=== PATIENT | male | born 1940 | race Caucasian/White ===

== ENCOUNTER 2021-11-10 04:17 | Inpatient (IN) | payer MEDICARE, BC ==
[~2021-11-10] VITALS: Ht 182.9 cm; Wt 88.1 kg
[2021-11-10 06:19] LABS: Anti-Xa UFH, PHA Monitoring 0.27 IU/mL
[2021-11-10] MEDS ORDERED: ASPI81CH PO (06:49)
[2021-11-10] MEDS ORDERED: ATOR40TA PO (06:50)
[2021-11-10] MEDS ORDERED: Carvedilol12.5 MG PO (06:51)
[2021-11-10] MEDS ORDERED: CELE200 PO (06:51)
[2021-11-10] MEDS ORDERED: Celexa20 MG PO (06:52)
--- NOTE | 2021-11-10 06:52 | NUR ---
COUNTER MAKER SUMMARY PT IS ALERT AND COMMUNICATING APPROPRIATELY W STAFF. PT DENYING ANY CP OR PRESSURE THIS SHIFT SINCE ARRIVING TO THE UNIT. TELE SHOWING SR IN THE 70'S W BBB AND ST DEPRESSION. O2 SATS >90% ON RM AIR. PT AFEBRILE. PT DENYING ANY NAUSEA AT THIS TIME. PT NPO FOR POSSIBLE PROCEDURE. HEPARIN GTT RUNNING PER EMAR. WILL REPORT TO ONCOMING RN.
[2021-11-10] MEDS ORDERED: CLOP75 PO (06:53)
[2021-11-10] MEDS ORDERED: CLON2 PO (06:53)
[2021-11-10] MEDS ORDERED: CYCL10 PO (06:54)
[2021-11-10] MEDS ORDERED: DILT60ER PO (06:55)
[2021-11-10] MEDS ORDERED: HYDR1TAB94 PO (06:55)
[2021-11-10] MEDS ORDERED: LEVSOD150 PO (06:56)
[2021-11-10] MEDS ORDERED: Prednisone10 MG (06:57)
--- NOTE | 2021-11-10 07:00 | NUR ---
Bedside report from Ramu Araya RN. Aníbal denies any chest pain, dyspnea, nor diaphoresis or other discomfort. Said that he is expecting to have an angiogram today, as that is what he was told would probably happen. STates that he has had 2 CABG surgeries, and also stents in the past. 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 Heparin gtt verified infusing per orders.
[2021-11-10 07:01] LABS: BASOPHILS ABSOLUTE AUTO 0.02 K/mm3 (0.00-0.23); BASOPHILS PERCENT AUTO 0 % (0-2); EOSINOPHILS ABSOLUTE AUTO 0.07 K/mm3 (0.00-0.68); EOSINOPHILS PERCENT AUTO 1 % (0-6); Hematocrit 46.6 % (37.0-53.0); Hemoglobin 15.9 g/dL (13.5-17.5); IMMATURE GRAN ABSOLUTE AUTO 0.03 K/mm3 (0.00-0.10); IMMATURE GRAN PERCENT AUTO 0 % (0-1); LYMPHOCYTES ABSOLUTE AUTO 1.72 K/mm3 (0.84-5.20); LYMPHOCYTES PERCENT AUTO 20 % (21-46); MONOCYTES ABSOLUTE AUTO 0.89 K/mm3 (0.16-1.47); MONOCYTES PERCENT AUTO 10 % (4-13); Mean Corpuscular HGB Conc 34.1 g/dL (31.5-36.5); Mean Corpuscular Volume 97 fL (80-100); Mean Platelet Volume 10.3 fL (9.1-12.4); NEUTROPHILS ABSOLUTE AUTO 6.04 K/mm3 (1.96-9.15); NEUTROPHILS PERCENT AUTO 69 % (41-73); Platelet Count 160 K/mm3 (150-400); RDW Coefficient Variation 13.6 % (11.7-14.2); RDW Standard Deviation 48.8 fL (35.1-46.3); Red Blood Cell Count 4.82 M/mm3 (4.30-5.90); White Blood Cell Count 8.77 K/mm3 (4.00-11.30)
[2021-11-10 07:20] LABS: Albumin, Blood 3.5 g/dL (3.4-5.0); Anion Gap 8 mmol/L (6-16); Blood Urea Nitrogen 16 mg/dL (8-24); Bun/Creatinine Ratio 21.3 (12.0-20.0); CHOL/HDL RATIO 2.7; CO2, Blood 28 mmol/L (21-32); Chloride, Blood 106 mmol/L (98-108); Cholesterol 130 mg/dL (50-200); Creatinine, Blood 0.75 mg/dL (0.60-1.20); Glomerular Filtration Rate 92 (60-); Glucose, Blood 101 mg/dL (70-99); HDL Cholesterol 49 mg/dL (>39); LDL/HDL RATIO 1.2; Low Density Lipoprotein Chol 60 mg/dL (0-110); Phosphorus, Blood 2.7 mg/dL (2.5-4.9); Potassium, Blood 3.3 mmol/L (3.5-5.5); Sodium, Blood 142 mmol/L (136-145); Triglycerides 105 mg/dL (30-160); Very Low Density Lipoprot Chol 21 mg/dL (6-32)
--- NOTE | 2021-11-10 09:07 | NUR ---
Pt states that he has been having "soreness" in his chest, rates it a 3/10, and states it feels like it is sore from all the pain that he was having yesterday, which he said was severe. No dyspnea, no diaphoresis, no other pain/discomfort. No changes on telemetry; ongoing ST depression. High sensitivity troponin result was received by vocera call from [employer]. Previous troponin were from the hospital in [place], values 20 and 30 at 1945 and 2256, respectively, which were not the high sensitivity troponin and found in the papers sent over from [facility] Darryl White in the pt's chart. Heparin gtt is infusing, and the pt's discomfort at this time is described by him as minimal. Nitro paste is also still in place on the left chest wall.
--- NOTE | 2021-11-10 09:33 | NUR ---
Call to Dr. Oreilly, regarding pt's latest troponin level. New order received for Plavix.
--- NOTE | 2021-11-10 09:42 | NUR ---
Voiding frequently, about 200 cc each time since getting IV lasix.
--- NOTE | 2021-11-10 09:50 | NUR ---
States chest soreness is about the same. Dr. Oreilly here to see the patient at this time.
--- NOTE | 2021-11-10 09:51 | NUR ---
Last stent was 3-4 years ago, pt . This was his last angiogram. States CABG was 1991 the last time. [facility] sees residential concierge May in [place], [place] at the [facility]. States that this time with his chest pain it was urelieved with NTG. Describes the pain as very intense, 10/10 yesterday, but now just a little spot of pain which is almost gone.
--- NOTE | 2021-11-10 11:44 | NUR ---
Pt got out of bed, removed his telemetry and disconnected his IV infusion briefly while in the bathroom for BM. States that he couldn't wait to go; that he had to get into the bathroom quickly. Reconnected his IV infusion and at this time the pt is sitting on side of bed, giving himself a sponge bath at this time before he goes for angiogram later.
--- NOTE | 2021-11-10 13:00 | NUR ---
Pt was taken to heart center, then returned to room right away as they had a STEMI who was put in front of this patient. Call to lab to have them draw the anti Xa at this time.
--- NOTE | 2021-11-10 18:08 | NUR ---
PT ADMITTED TO ICU 2 AT 1730 S/P FISHER TROT LINE W 3 STENTS PLACED TO SVG. PT WIDE AWAKE, DENIES C/O CHEST PAIN/PRESSURE, SOB, OR NAUSEA. PT HAS ART SHEATH TO RIGHT FEM ART. ART LINE SET UP. DR NIEVES CALLED AND UPDATED. PTT TO BE DRAWN AT 1915, IF PTT <40, SHEATH TO BE PULLED W MANUAL PRESSURE. RIGHT SHEATH SITE WNL, SITE W/O SWELLING, BLEEDING, OR PAIN. CIRC CHECK TO BLE STABLE. +1 PULSES TO RIGHT DP/PT. CAP REFILL <3SEC. LASIX IV GIVEN, K+ RIDER TO BE INFUSED.
--- NOTE | 2021-11-10 19:15 | NUR ---
ASSUMPTION OF CARE PT LYING IN SUPINE IN BED IN REVERSE [place] POSITION. HE IS A&OX4, DENIES PAIN OR DISCOMFORT. SINUS RHYTHM ON MONITOR WITH RATE IN 70S, BP STABLE. RA WITH SPO2 >95%. R GROIN SHEATH VISUALIZED WITH MARY JO BAKER. SUTURE AND DRESSING INTACT. SURROUNDING TISSUE SOFT, NO HEMATOMA. STRONG DISTAL PEDAL PULSE, SENSATION INTACT. PT DENIES CP. CALL LIGHT WITHIN REACH. VSS AT THIS TIME.
--- NOTE | 2021-11-10 21:00 | NUR ---
SHEATH R GROIN SHEATH ACCIDENTALLY DISLODGED WHILE PT SELF REPOSITIONING. DRESSING OFF AND CATHETER OUT ABOUT 2" AND KINKED. NO EXTERNAL BLEEDING NOTED. SMALL HEMATOMA NOTED. CALL PLACED TO DR NIEVES. PLAN TO PULL SHEATH, CONTINUE REPEAT PTT AT 2200 AND CONTINUE TO MONITOR SITE.
--- NOTE | 2021-11-10 23:32 | NUR ---
SHEATH REMOVAL SHEATH REMOVED, CATHETER INTACT. PRESSURE HELD FOR 20MIN. SPO2 PROBE ON R TOE DURING THIS TIME. AFTER 20MIN, SITE IS NOT BLEEDING. HEMATOMA IS SMALLER THAN PRIOR TO REMOVAL. CLEAR DRESSING IN PLACE. STRONG PEDAL PULSE, SENSATION INTACT. PT DENIES PAIN.
--- NOTE | 2021-11-11 00:30 | NUR ---
UPDATE PT LYING FLAT IN BED. REPORTED FEELING RESTLESS AND UNCOMFORTABLE. MEDICATED PER EMAR. HE REMAINS IN SINUS RHYTHM WITH ST DEPRESSION ON MONITOR WITH RATE 60S-70S. SBP 100S-110S. STRONG PULSES. R GROIN SHEATH SITE HAS SMALL HEMATOMA. NO ACTIVE BLEEDING, DRESSING INTACT. PT DENIES PAIN. DISTAL EXTREMITIY SENSATION INTACT. PT CONTINUES TO USE URINAL INDEPENDENLY.
--- NOTE | 2021-11-11 04:08 | NUR ---
UPDATE PT HAS BEEN SLEEPING, WAKENS TO VERBAL STIMULI. HE DENIES CP. R GROIN SITE HAS SMALL HEMATOMA. DRESSING INTACT. VSS AT THIS TIME.
[2021-11-11 05:04] LABS: BASOPHILS ABSOLUTE AUTO 0.03 K/mm3 (0.00-0.23); BASOPHILS PERCENT AUTO 0 % (0-2); EOSINOPHILS ABSOLUTE AUTO 0.07 K/mm3 (0.00-0.68); EOSINOPHILS PERCENT AUTO 1 % (0-6); Hematocrit 43.1 % (37.0-53.0); Hemoglobin 14.8 g/dL (13.5-17.5); IMMATURE GRAN ABSOLUTE AUTO 0.01 K/mm3 (0.00-0.10); IMMATURE GRAN PERCENT AUTO 0 % (0-1); LYMPHOCYTES PERCENT AUTO 24 % (21-46); MONOCYTES ABSOLUTE AUTO 0.94 K/mm3 (0.16-1.47); MONOCYTES PERCENT AUTO 13 % (4-13); Mean Corpuscular HGB 32.9 pg (26.0-34.0); Mean Corpuscular HGB Conc 34.3 g/dL (31.5-36.5); Mean Corpuscular Volume 96 fL (80-100); Mean Platelet Volume 9.9 fL (9.1-12.4); NEUTROPHILS ABSOLUTE AUTO 4.37 K/mm3 (1.96-9.15); NEUTROPHILS PERCENT AUTO 61 % (41-73); Platelet Count 147 K/mm3 (150-400); RDW Coefficient Variation 13.7 % (11.7-14.2); RDW Standard Deviation 48.6 fL (35.1-46.3); White Blood Cell Count 7.12 K/mm3 (4.00-11.30)
--- NOTE | 2021-11-11 05:55 | NUR ---
SHIFT SUMMARY PT SLEPT THROUGH MOST OF NIGHT. HE REMAINS A&OX4. VERY PLEASANT AND TALKATIVE. BBB ON MONITOR WITH RATE 60S-80S. SBP 110S. PT DENIES CP THROUGHOUT SHIFT. R GROIN SITE HAS SMALL HEMATOMA. NO SIGNS OF ACTIVE BLEEDING, CLEAR DRESSING INTACT. PT DENIES PAIN AT INSERTION SITE. DISTAL SENSATION INTACT. LUNGS ARE CLEAR T/O. OCCASIONAL COUGH THAT HE STS IS CHRONIC. BOWEL TONES ACTIVE, ABDOMEN SOFT, PT DENIES GI UPSET. PT USES URINAL INDEPENDENTLY. URINE IS CLEAR/YELLOW. VS HAVE REMAINED STABLE. HE IS CURRENTLY SITTING UP IN A CHAIR. CALL LIGHT WITHIN REACH.
--- NOTE | 2021-11-11 08:00 | NUR ---
PT A&OX4. DENIES PAIN OR SOB. PT SITTING UP IN THE CHAIR WITHOUT NOTED DISTRESS. ECG SHOWS AFIB WITH BBB RATE 70'S. BP WDL. NO NOTED EDEMA. RIGHT FEMORAL SITE CLEAR-NO BLEEDING OR HEMATOMA. PT DENIES TENDERNESS. PT HAS BEEN UP IN THE ROOM AD VAISHNAVI. LUNGS SLIGHTLY DIMINISHED IN THE BASES, BUT PT DENIES SOB OR COUGH. SATS>90% ON RA. PT TOLERATING CARDIAC DIET WELL. URINAL WITHIN PT REACH. PT INDEPENDENT WITH ADL'S AND TOILETING. CALL LIGHT WITHIN REACH-PT AGREES TO CALL FOR ASSIST PRN. PT ANTICIPATING DC TO HOME TODAY. HE DID REFUSE PLAVIX THIS AM HE TAKE BRILLINTA @ HOME. WILL DISCUSS WITH DR. YOUNG LATER THIS AM.
--- NOTE | 2021-11-11 11:04 | NUR ---
RIGHT FEMORAL SITE REMAINS CLEAR. VSS. PT DENIES CP OR SOB. BRILLINTA GIVEN PER DR. NIEVES ORDERS-SEE EMAR. DR. ORANTES HERE TO SEE PT. ANTICIPATE DISCHARGE.
[2021-11-11] MEDS ORDERED: FURO20 PO (12:01)
[2021-11-11] MEDS ORDERED: Isosorbide Mono30 MG PO (12:03)
[2021-11-11] MEDS ORDERED: TICA90TA PO (12:04)
[2021-11-11] MEDS ORDERED: LISI5 PO (12:04)
--- NOTE | 2021-11-11 13:16 | NUR ---
REVIEWED DISCHARGE INSTRUCTIONS WITH PT. PT VERBALIZES UNDERSTANDING. RX PHONED TO [facility] PER PT REQUEST.
--- NOTE | 2021-11-12 11:53 | NUR ---
DISCHARGE INSTRUCTIONS: RECEIVED CALL FROM PT'S SON WITH CONCERNS OVER DISCHARGE MEDICATIONS. HE STATES PT IS ON DILTIAZEM, PANTOPRAZOLE AND GABAPENTIN AT HOME, AND THESE MEDS WERE NOT INCLUDED IN HIS DISCHARGE MED REC. CALLED TO DR ROJAS TO CLARIFY. SHE STATES PT MAY CONTINUE PANTOPRAZOLE AND GABAPENTIN AT PREVIOUS HOME DOSES, BUT TO DISCONTINUE HOME DILTIAZEM ( PT WAS DISCHARGED ON CARVEDILOL) AND HAVE PT FOLLOW UP WITH PODIATRIC TECHNICIAN EDILIA. THESE INSTRUCTIONS RELAYED TO PT'S SON WHO VERBALIZES UNDERSTANDING.
== END 2021-11-11 14:47 | disposition home or self-care (01) | DRG 246 ==
LOC: PCU 04:17 → ICUE 05:16
PROVIDERS: ADMIT Family Medicine
PROC: B2181ZZ Fluoroscopy of Left Internal Mammary Bypass Graft using Low Osmolar Contrast (ICD-10-PCS; principal; 2021-11-10)
PROC: 027036Z Dilation of Coronary Artery, One Artery with Three Drug-eluting Intraluminal Devices, Percutaneous Approach (ICD-10-PCS; 2021-11-10)
PROC: B2171ZZ Fluoroscopy of Right Internal Mammary Bypass Graft using Low Osmolar Contrast (ICD-10-PCS; 2021-11-10)
PROC: B2121ZZ Fluoroscopy of Single Coronary Artery Bypass Graft using Low Osmolar Contrast (ICD-10-PCS; 2021-11-10)
PROC: B2111ZZ Fluoroscopy of Multiple Coronary Arteries using Low Osmolar Contrast (ICD-10-PCS; 2021-11-10)
DX: I21.4 Non-ST elevation (NSTEMI) myocardial infarction (principal); I50.23 Acute on chronic systolic (congestive) heart failure; E78.5 Hyperlipidemia, unspecified; I11.0 Hypertensive heart disease with heart failure; I44.7 Left bundle-branch block, unspecified; I73.9 Peripheral vascular disease, unspecified; Z95.5 Presence of coronary angioplasty implant and graft; Z95.1 Presence of aortocoronary bypass graft; Z96.653 Presence of artificial knee joint, bilateral; Z79.82 Long term (current) use of aspirin; Z79.899 Other long term (current) drug therapy; Z20.822 Contact with and (suspected) exposure to COVID-19; I49.1 Atrial premature depolarization; E03.9 Hypothyroidism, unspecified; I25.10 Atherosclerotic heart disease of native coronary artery without angina pectoris
CPT/HCPCS: 36415; 71045; 76937; 80061; 80069; 83880; 84484; 85025; 85520; 85730; 92978; 93005; 93010; 93455; 99152; 99153; A9270; C1725; C1753; C1769; C1874; C1887; C1894; C8929; C9604; J1644; J1940; J2250; J3010; J3480; J7030; J7040; Q9957; Q9967